=== PATIENT | female | born 1995 | race African-American/Black ===

== ENCOUNTER 2018-10-10 17:53 | Emergency (ER) | payer MEDICAID ==
[2018-10-10 18:09] VITALS: BP 124/74
--- NOTE | 2018-10-11 09:47 | ER Document Report ---
ED Medical Screen (RME) - General Chief Complaint: Abdominal Pain Stated Complaint: FLU LIKE SYMPTOMS Mode of Arrival: Medic Information source: Patient, Emergency Med Personnel Notes: 23-year-old female at reportedly 32 weeks gestation presents with complaint of lower abdominal pain. Patient states that she has not had an ultrasound but has been seeing health department. She has not yet been seen by INSTRUMENTATION TECH. Patient denies vaginal bleeding. Has been experiencing cramping and diarrhea. I have greeted and performed a rapid initial assessment of this patient. A comprehensive ED assessment and evaluation of the patient, analysis of test results and completion of medical decision making process we will be contacted by additional ED providers. Exam significant for a gravid abdomen. Bedside ultrasound was performed and showed a breech presentation of a fetus that looked well into the second trimester. Patient stable for transfer to labor and delivery. TRAVEL OUTSIDE OF THE [place] IN LAST 30 DAYS: No - Related Data Allergies/Adverse Reactions: sulfamethoxazole [From Septra] Allergy (Verified 10/10/18 18:42) trimethoprim [From Julra] Allergy (Verified 10/10/18 18:42) Past Medical History Renal/ Medical History: Denies: Hx Peritoneal Dialysis Past Surgical History: Reports: Hx Section - C SEC X 1 Physical Exam - Vital signs Vitals: Temp Pulse Resp BP Pulse Ox 98.0 F 78 24 H 124/74 100 10/10/18 18:00 10/10/18 18:00 10/10/18 18:00 10/10/18 18:00 10/10/18 18:00 Course - Vital Signs Vital signs: Temp Pulse Resp BP Pulse Ox 98.0 F 78 24 H 124/74 100 10/10/18 18:00 10/10/18 18:00 10/10/18 18:00 10/10/18 18:00 10/10/18 18:00 Doctor's Discharge - Discharge Disposition: LABOR CHECK
== END 2018-10-10 18:11 | disposition admitted as inpatient to this hospital (09) ==
LOC: ER 17:53
DX: O60.03 Preterm labor without delivery, third trimester (principal); O26.893 Other specified pregnancy related conditions, third trimester; R19.7 Diarrhea, unspecified; Z3A.32 32 weeks gestation of pregnancy; Z88.1 Allergy status to other antibiotic agents
CPT/HCPCS: 99283

== ENCOUNTER 2018-10-10 18:13 | Outpatient (CLI) | payer MEDICAID ==
[2018-10-10 19:05] LABS: APPEARANCE,URINE CLEAR; BILIRUBIN,URINE NEGATIVE (NEGATIVE); COLOR,URINE YELLOW; GLUCOSE, URINE NEGATIVE (NEGATIVE); KETONES,URINE NEGATIVE (NEGATIVE); LEUKOCYTE ESTERASE,URINE NEGATIVE (NEGATIVE); NITRITE,URINE NEGATIVE (NEGATIVE); PROTEIN,URINE NEGATIVE (NEGATIVE); URINE SPECIFIC GRAVITY 1.011; UROBILINOGEN,URINE NEGATIVE mg/dL (<2.0)
[2018-10-10 19:23] LABS: URINE AMPHETAMINES SCREEN NEGATIVE; URINE BARBITURATES SCREEN NEGATIVE; URINE BENZODIAZEPINES SCREEN NEGATIVE; URINE COCAINE SCREEN NEGATIVE; URINE MARIJUANA (THC) SCREEN NEGATIVE; URINE METHADONE SCREEN NEGATIVE; URINE PHENCYCLIDINE SCREEN NEGATIVE
--- NOTE | 2018-10-10 20:28 | L&D Progress Notes ---
PROGRESS NOTES Datetime Report Generated by CPN: 10/10/2018 20:28 PROGRESS NOTE Impression Other: pelvic pressure anback pain Procedures- Other: monitor Plan Other: monitor Vital Signs : Reviewed; Within Normal Limits Comment: Pt arrived via ambulance c/ "abdominal pain. Assessment of the pt is that she is c/o of low pelvic pressure and low back pain. Her cervix is closed and thick. The pain is intermittent. NST not reactive, but expected at 31 weeks. Would like to see better variability. Will give the pt some juice or a popsicle and then she can have some Nubain. VAGINAL EXAM Dilatation: closed Effacement: thick Station: high Contractions: none LAST VAGINAL EXAM-NURSING Dilitation: 0.0 Effacement: 0 Station: thick Contractions: abd palpates soft FETUS A FHR - Baseline: 130s Monitoring: External US Variability: Minimal - Undetectable to <=5bpm Accelerations: 10X10 Decelerations: None FHR Category: Category I FHR Comments: appropriate for EGA; pt has not eaten for several hours : 31.3 SIGNATURE SIGNATURE: [id number] Signature: with User ID: [email or web address]
[2018-10-10] MEDS ORDERED: NALBUPHINE HCL INJ 10 MG/1 ML AMPULE IM ONE (20:30)
[2018-10-10] MEDS ORDERED: NALBUPHINE HCL INJ 10 MG/1 ML AMPULE ONE (21:14)
== END 2018-10-10 21:42 | disposition home or self-care (01) ==
LOC: LC 18:13
PROVIDERS: ATTEND Obstetrics & Gynecology
PROC: 4A1HXCZ Monitoring of Products of Conception, Cardiac Rate, External Approach (ICD-10-PCS; principal; 2018-10-10)
DX: O47.03 False labor before 37 completed weeks of gestation, third trimester (principal); Z3A.32 32 weeks gestation of pregnancy
CPT/HCPCS: 81001; 80307; 59899; J2300

== ENCOUNTER 2018-11-21 01:01 | Outpatient (CLI) | payer MEDICAID ==
[2018-11-21 02:28] LABS: APPEARANCE,URINE CLEAR; COLOR,URINE YELLOW; GLUCOSE, URINE NEGATIVE (NEGATIVE)
[2018-11-21 02:29] LABS: BILIRUBIN,URINE NEGATIVE (NEGATIVE); KETONES,URINE NEGATIVE (NEGATIVE); LEUKOCYTE ESTERASE,URINE NEGATIVE (NEGATIVE); NITRITE,URINE NEGATIVE (NEGATIVE); PROTEIN,URINE 30 mg/dL (NEGATIVE); UROBILINOGEN,URINE NEGATIVE mg/dL (<2.0)
[2018-11-21 02:45] LABS: URINE AMPHETAMINES SCREEN NEGATIVE; URINE BARBITURATES SCREEN NEGATIVE; URINE BENZODIAZEPINES SCREEN NEGATIVE; URINE COCAINE SCREEN NEGATIVE; URINE MARIJUANA (THC) SCREEN NEGATIVE; URINE METHADONE SCREEN NEGATIVE; URINE PHENCYCLIDINE SCREEN NEGATIVE
[2018-11-21 03:17] LABS: ABSOLUTE BASOPHILS # (AUTO) 0.1 10^3/uL (0.0-0.2); ABSOLUTE EOSINOPHILS # (AUTO) 0.9 10^3/uL (0.0-0.6); ABSOLUTE LYMPHOCYTES (AUTO) 3.1 10^3/uL (0.5-4.7); ABSOLUTE MONOCYTES (AUTO) 0.8 10^3/uL (0.1-1.4); ABSOLUTE NEUT (AUTO) 8.9 10^3/uL (1.7-8.2); EOSINOPHILS % (AUTO) 6.8 % (0-6); HEMATOCRIT 38.5 % (36.0-47.0); HEMOGLOBIN 12.7 g/dL (12.0-15.5); LYMPHOCYTES % (AUTO) 22.4 % (13-45); MEAN CORPUSCULAR HEMOGLOBIN 27.1 pg (27.0-33.4); MEAN CORPUSCULAR HGB CONC 32.9 g/dL (32.0-36.0); MEAN CORPUSCULAR VOLUME 83 fl (80-97); MONOCYTES % (AUTO) 5.5 % (3-13); PLATELET COUNT 352 10^3/uL (150-450); RED BLOOD COUNT 4.67 10^6/uL (3.72-5.28); RED CELL DISTRIBUTION WIDTH 15.9 % (11.5-14.0); SEGMENTED NEUTROPHILS % (AUTO) 64.3 % (42-78); TOTAL CELLS COUNTED % (AUTO) 100 %; WHITE BLOOD COUNT 13.8 10^3/uL (4.0-10.5)
[2018-11-21] MEDS ORDERED: HYDROXYZINE PAMOATE 50 MG CAPSULE PO ONE (03:47)
[2018-11-21] MEDS ORDERED: HYDROXYZINE PAMOATE 50 MG CAPSULE ONE (03:53)
[2018-11-21 03:57] LABS: CHLAM PCR NOT DETECTED (NOT DETECT); GON PCR NOT DETECTED (NOT DETECT)
--- NOTE | 2018-11-21 05:37 | Non Stress Test Report ---
Non Stress Test Datetime Report Generated by CPN: 11/21/2018 05:37 DEMOGRAPHIC EGA NST: 37.3 INDICATION Indication for Study: Ordered by Provider; Other Indication for Study (NST) Other: Labor check VITAL SIGNS Temperature - NST: 98.0 Pulse - NST: 68 RESP - NST: 14 NBPSYS NST: 138 NBPDIA NST: 93 URINE RESULTS Urine Protein, NST: Positive Urine Ketones - NST: Negative Urine Glucose - NST: Negative Urine Blood - NST: Negative MONITORING Monitor Explained: Monitor Explained; Test Explained; Patient Verbalized Understanding Time on Monitor: 11/21/2018 01:25 Time off Monitor: 11/21/2018 03:36 NST Duration: 131 NST INTERVENTIONS NST Interventions: PO Hydration; Other NST Interventions Other: Popsicles Physician Notified NST: Dr. Gagandeep BABY A: [id number] BABY A Movement : Present Contraction Frequency : None noted FHR Baseline : 125 Accelerations : 15X15 Decelerations : None Variability : Moderate 6-25bpm NST Review: Meets Criteria for Reactive NST NST Review and Verified By : Darcie Castellanos RN NST Results: Reactive NST REPORT Report Trigger: Send Report
[2018-11-22 05:54] LABS: RUBELLA INTERPRETATION POSITIVE
[2018-11-22 06:39] LABS: HEPATITIS C VIRUS AB 0.1 s/co ratio (0.0-0.9)
[2018-11-22 07:11] LABS: HEPATITS B SURFACE ANTIGEN Negative (Negative)
== END 2018-11-21 05:57 | disposition home or self-care (01) ==
LOC: LC 01:01
PROVIDERS: ATTEND Obstetrics & Gynecology
PROC: 4A1HXCZ Monitoring of Products of Conception, Cardiac Rate, External Approach (ICD-10-PCS; principal; 2018-11-21)
DX: O47.1 False labor at or after 37 completed weeks of gestation (principal); Z3A.37 37 weeks gestation of pregnancy
CPT/HCPCS: 59025; 94760; 86900; 86901; 36415; 86850; 85025; 81005; 87077; 86762; 86592; 87081; 87340; 86701; 80307; 87491; 87591; 86803; 86804; 84112; J3490

== ENCOUNTER 2018-12-01 07:07 | Inpatient (IN) | payer MEDICAID ==
[2018-12-01 08:28] LABS: APPEARANCE,URINE SLIGHTLY-CLOUDY; BILIRUBIN,URINE NEGATIVE (NEGATIVE); COLOR,URINE YELLOW; GLUCOSE, URINE NEGATIVE (NEGATIVE); KETONES,URINE NEGATIVE (NEGATIVE); LEUKOCYTE ESTERASE,URINE TRACE (NEGATIVE); NITRITE,URINE NEGATIVE (NEGATIVE); PROTEIN,URINE 100 mg/dL (NEGATIVE); URINE SPECIFIC GRAVITY 1.018; UROBILINOGEN,URINE NEGATIVE mg/dL (<2.0)
[2018-12-01] MEDS ORDERED: CEFAZOLIN 1 GM/D5W RTU 2 GM/100 ML RTUPB IV ONE (08:38)
[2018-12-01] MEDS ORDERED: CITRIC ACID/SODIUM CITRATE ORAL SOLN 15 ML UDCUP ONE (08:38)
[2018-12-01 08:49] LABS: URINE AMPHETAMINES SCREEN NEGATIVE; URINE BARBITURATES SCREEN NEGATIVE; URINE BENZODIAZEPINES SCREEN NEGATIVE; URINE COCAINE SCREEN NEGATIVE; URINE MARIJUANA (THC) SCREEN NEGATIVE; URINE METHADONE SCREEN NEGATIVE; URINE PHENCYCLIDINE SCREEN NEGATIVE
[2018-12-01] MEDS ORDERED: OXYTOCIN 10 UNIT/ML VIAL ONE (09:05)
[2018-12-01] MEDS ORDERED: PROPOFOL INJ 200 MG/20 ML VIAL IV ONE (09:05)
[2018-12-01] MEDS ORDERED: FENTANYL CITRATE INJ/PF 100 MCG/2 ML AMPUL ONE (09:06)
[2018-12-01] MEDS ORDERED: MIDAZOLAM 2 MG/2 ML INJ ONE (09:06)
[2018-12-01] MEDS ORDERED: OXYTOCIN/NORMAL SALINE 20 UNIT/1,000 ML RTUINJ ONE (09:06)
[2018-12-01] MEDS ORDERED: EPHEDRINE SULFATE INJ 50 MG/1 ML AMPULE ONE (09:06)
[2018-12-01] MEDS ORDERED: ONDANSETRON HCL INJ/PF 4 MG/2 ML SDV ONE (09:06)
[2018-12-01] MEDS ORDERED: CEFAZOLIN SODIUM 2 GM in DEXTROSE 5%-WATER 50 ML IV PRN (09:13)
--- NOTE | 2018-12-01 09:15 | Admission Physical ---
Datetime Report Generated by CPN: 12/01/2018 09:15 CURRENT ADMISSION Chief Complaint: Uterine Contractions Indication for Induction: Not Applicable Admit Impression : Term, Intrauterine ; Intact Membranes; Repeat Section Admit Impression- Other: very poor care. indicates that she had "a blood clot in her lungs" after her last c/section. denies taking anticoagulants this . Admit Plan: Admit to Unit; Initiate Section Protocol ALLERGIES Medication Allergies: Yes Medication Allergies: sulfamethoxazole (11/21/2018); trimethoprim (11/21/2018) Latex: No Latex Allergies Food Allergies: NKA Environmental Allergies: NKA OBSTETRICAL HISTORY EDC: 12/09/2018 00:00 : 2 Para: 2 Term: 0 : 2 SAB: 0 IAB: 0 Ectopic: 0 Livin Cesareans: 1 VBACs: 0 Multiple Births: 1 Gestational Diabetes: No Rh Sensitization: No Incompetent Cervix: No DARYL: No Infertility: No ART Treatment: No Uterine Anomaly: No IUGR: No Hx Previous C/S: Yes Macrosomia: No Hx Loss/Stillborn: No PIH: No Hx : No Placenta Previa/Abruption: No Depression/PP Depression: No PTL/PROM: No Post Hemorrhage: No Current Procedures: Ultrasound SEE RECORDS Alcohol: No Marijuana : No Cocaine: No Other Illicit Drugs: No Cigarettes: Never Smoker. 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 Surgery: No Heart Disease: No Hosp/Surgery: Yes Autoimmune Disorder: No Anesthetic Complications: Yes Kidney Disease: No Abnormal Pap Smear: No Neuro/Epilepsy: No Psychiatric Disorders: No Other Medical Diseases: No Hepatitis/Liver Disease: No Significant Family History: No Varicosities/Phlebitis: Yes Thyroid Dysfunction: No INFECTIOUS HISTORY Gonorrhea: No Genital Herpes: No Chlamydia: No Tuberculosis: No Syphilis: No Hepatitis: No Rash or Viral Illness: No HPV: No PHYSICAL EXAM General: Normal HEENT: Normal Neurologic: Normal Thyroid: Normal Heart: Normal Lungs: Normal Breast: Normal Back: Normal Abdomen: Normal Genitourinary Exam: Normal Extremities: Normal DTRs: Normal Pelvic Type: Adequate Vital Signs: Reviewed Details Vital Signs: elevated bps VAGINAL EXAM Dilatation: 3 Effacement: 50 Station: -3 Contraction Comments: none MEMBRANES Pooling: Positive Membranes: Ruptured Amniotic Fluid Color: Clear FETUS A EGA: 38.6 Monitoring: External US FHR- Baseline: 120 Variability: Moderate 6-25bpm Accelerations: 10X10 Decelerations: Late FHR Category: Category II Estimated Weight (gm): 3500 Presentation: Breech Admit Comment: proceed with urgent repeat c/section. anticoagulation/scds initated. will continue anticoagulation after c/section x 6 wks. PLANS FOR LABOR AND DELIVERY Labor and Delivery: None Pain Management: Epidural Feeding Preference: Both Benefit of Breast Feed Discussed: Yes Circumcision: Yes INFORMED CONSENT Signature: with User ID: [email or web address]
[2018-12-01 09:21] LABS: ABSOLUTE EOSINOPHILS # (AUTO) 0.3 10^3/uL (0.0-0.6); ABSOLUTE LYMPHOCYTES (AUTO) 1.8 10^3/uL (0.5-4.7); ABSOLUTE MONOCYTES (AUTO) 0.5 10^3/uL (0.1-1.4); ABSOLUTE NEUT (AUTO) 8.5 10^3/uL (1.7-8.2); BASOPHILS % (AUTO) 0.4 % (0-2); EOSINOPHILS % (AUTO) 3.1 % (0-6); HEMATOCRIT 38.7 % (36.0-47.0); HEMOGLOBIN 12.6 g/dL (12.0-15.5); MEAN CORPUSCULAR HEMOGLOBIN 26.6 pg (27.0-33.4); MEAN CORPUSCULAR HGB CONC 32.6 g/dL (32.0-36.0); MEAN CORPUSCULAR VOLUME 82 fl (80-97); MONOCYTES % (AUTO) 4.2 % (3-13); PLATELET COUNT 318 10^3/uL (150-450); RED BLOOD COUNT 4.75 10^6/uL (3.72-5.28); RED CELL DISTRIBUTION WIDTH 16.3 % (11.5-14.0); SEGMENTED NEUTROPHILS % (AUTO) 76.3 % (42-78); TOTAL CELLS COUNTED % (AUTO) 100 %; WHITE BLOOD COUNT 11.1 10^3/uL (4.0-10.5)
[2018-12-01 09:23] LABS: INTERNATIONAL RATION (INR) 0.89; PARTIAL THROMBOPLASTIN TIME 24.6 SEC (23.5-35.8); PROTHROMBIN TIME 12.5 SEC (11.4-15.4)
[2018-12-01] MEDS ORDERED: BUPIVACAINE HCL/DEX-WATER/PF 15 MG/2 ML AMPULE ONE (09:24)
[2018-12-01] MEDS ORDERED: NALBUPHINE HCL INJ 10 MG/1 ML AMPULE ONE (10:28)
[2018-12-01] MEDS ORDERED: OXYCODONE-ACETAMINOPHEN 5-325 MG TABLET PO PRN (10:37)
[2018-12-01] MEDS ORDERED: ACETAMINOPHEN 1,000 MG/100 ML RTUPB IV PRN (10:37)
[2018-12-01] MEDS ORDERED: MEASLES,MUMPS&RUBELLA VACC/PF 0.5 ML VIAL SUBCUT PRN (10:37)
[2018-12-01] MEDS ORDERED: PROMETHAZINE HCL INJ 25 MG/1 ML VIAL IV PRN (10:37)
[2018-12-01] MEDS ORDERED: DIPH/PERTUSS(ACELL)/TETANUS VAC/PF 0.5 ML SYR (>=10YO) IM PRN (10:37)
[2018-12-01] MEDS ORDERED: OXYTOCIN/NORMAL SALINE 20 UNIT/1,000 ML RTUINJ IV PRN (10:37)
[2018-12-01] MEDS ORDERED: SIMETHICONE 80 MG TAB.CHEW PO PRN (10:37)
[2018-12-01] MEDS ORDERED: ACETAMINOPHEN 325 MG TABLET PO PRN (10:37)
[2018-12-01] MEDS ORDERED: KETOROLAC TROMETHAMINE INJ/PF 30 MG/1 ML SDV ONE (10:50)
[2018-12-01] MEDS ORDERED: ACETAMINOPHEN 1,000 MG/100 ML RTUPB IV ONE (10:50)
[2018-12-01] MEDS ORDERED: CEFAZOLIN 1 GM/D5W RTU 1 GM/50 ML RTUPB IV ONE ×3 (11:08→11:11)
[2018-12-01] MEDS ORDERED: MORPHINE SULFATE 10 MG/ML INJ ONE (12:49)
[2018-12-01] MEDS: MORPHINE SULFATE 10 MG/ML INJ IV PRN ×2 (12:50→16:34)
--- NOTE | 2018-12-01 13:58 | Delivery Summary ---
Del Sum A-C Datetime Report Generated by CPN: 12/01/2018 13:57 DELIVERY PERSONNEL DELIVERY PERSONNEL: [id number] Delivery Doctor:: Klarissa Donis MD Anesthesiologist:: Ana Reyez MD ELEMENTARY TEACHER:: Pramod Mason ELEMENTARY TEACHER Party Demonstrator:: Stacey Dunaway, RNC Emission Technician:: Maverick Rosario MD Nursery Nurse:: Hyacinth Neri RN Dental Associate/WASHHOUSE WORKER: [facility] Dental Associate/WASHHOUSE WORKER: Ann Montenegro, BUILDING ARCHITECT MATERNAL INFORMATION Delivery Anesthesia: Spinal Medications After Delivery: Pitocin Bolus-Please Comment Maternal Complications: None; Other Complication Details: limited care /hx of pe and no treatment this /no previous records available LABOR SUMMARY EDC: 12/09/2018 00:00 No. Babies in Womb: 1 Attempted: No Labor Anesthesia: None LABOR INFORMATION Reason for Induction: Not Applicable Onset of Labor: 11/30/2018 19:00 Oxytocin: N/A Group B Beta Strep: positive Antibiotics # of Doses: 0 Antibiotics Time of Last Dose: 0 Name of Antibiotic Given: ancef 2 grams preop Steroids Given: None Reason Steroids Not Administered: Not Applicable MEMBRANES Membranes Rupture Method: Spontaneous Rupture of Membranes: 11/30/2018 23:00 Length of Rupture (hr): 10.77 Amniotic Fluid Color: Clear Amniotic Fluid Amount: Scant Amniotic Fluid Odor: Normal STAGES OF LABOR Stage 3 hr: 0 Stage 3 min: 1 Total Time in Labor hr: 14 Total Time in Labor min: 47 VAGINAL DELIVERY Episiotomy: None Laceration #1: None Laceration Extension #1: N/A Laceration Repair: Not Applicable Sponge Count Correct: N/A Sharps Count Correct: N/A CSECTION DELIVERY Primary Indication: Nonreassuring Status Secondary Indication: Repeat CSection Urgency: Non-Scheduled CSection Incidence: Repeat Labor: Labor Elective: Nonelective CSection Incision: Lower Uterine Transverse BABY A INFORMATION Infant Delivery Date/Time: 12/01/2018 09:46 Method of Delivery: Born in Route : No : N/A Forceps: N/A Vacuum Extraction: N/A Shoulder Dystocia : No PRESENTATION/POSITION BABY A Presentation: Cephalic Cephalic Presentation: Vertex Vertex Position: vertex Breech Presentation: N/A PLACENTA INFORMATION BABY A Placenta Delivery Time : 12/01/2018 09:47 Placenta Method of Delivery: Manual Removal Placenta Status: Delivered SCORES BABY A Heart Rate 1 min: >100 bpm Resp Effort 1 min: Slow, Irregular Reflex Irritability 1 min: No Response Muscle Tone 1 min: Flaccid Color 1 min: Blue/Pale Resuscitation Effort 1 min: Tactile Stimulation; PPV/NCPAP SCORE 1 MIN: 3 Heart Rate 5 min: >100 bpm Resp Effort 5 min: Good Cry Reflex Irritability 5 min: Cough or Sneeze or Pulls Away Muscle Tone 5 min: Active Motion Color 5 min: Body [place], Extremities Blue SCORE 5 MIN: 9 INFANT INFORMATION BABY A Gestational Age at Delivery: 38.6 Gestational Status: Early Term- 37- 38.6 Weeks Outcome : Liveborn Condition : Stable Infant Sex: Male IDENTIFICATION BABY A Infant Verification Date/Time: 12/01/2018 09:50 ID Band Number: [id number] Mother's Name Verified: Yes RN Verifying : Demetrice Tamayoterri RN/D Emelyn RN Additional Verifying Personnel: [facility] RN WEIGHT/LENGTH BABY A Infant Birthweight (gm): 2060 Infant Weight (lb): 4 Weight (oz): 9 Length (in): 19.00 Infant Length (cm): 48.26 CORD INFORMATION BABY A No. Cord Vessels: 3 Nuchal Cord : N/A Cord Blood Taken: Yes-For Storage (Mom's Blood type +) Infant Suction: Mouth; Nose; Pharynx ASSESSMENT BABY A Skin to Skin: Yes Skin to Skin Time (min): 60 BABY B INFORMATION : N/A
[2018-12-01] MEDS: KETOROLAC TROMETHAMINE INJ/PF 30 MG/1 ML SDV IV SCH ×2 (15:29→21:41)
[2018-12-01] MEDS: DOCUSATE SODIUM 100 MG CAPSULE PO SCH (19:02)
[2018-12-01] MEDS: OXYCODONE-ACETAMINOPHEN 5-325 MG TABLET PO PRN (21:47)
[2018-12-02] MEDS ORDERED: ENOXAPARIN SODIUM INJ 40 MG/0.4 ML DISP.SYRIN SUBCUT ONE (00:10)
[2018-12-02] MEDS: OXYCODONE-ACETAMINOPHEN 5-325 MG TABLET PO PRN ×3 (03:08→21:34)
--- NOTE | 2018-12-02 05:27 | OPERATIVE REPORT E ---
Operative Report NAME: BELKIS JAMES : 1995 AGE: 23Y DATE OF SURGERY: 12/01/2018 ROOM: 227 PREOPERATIVE DIAGNOSES: 1. IUP AT 38 WEEKS AND 2 DAYS. 2. PREVIOUS . 3. NONREASSURING HEART TONES. 4. LABOR. POSTOPERATIVE DIAGNOSES: 1. IUP AT 38 WEEKS AND 2 DAYS. 2. PREVIOUS . 3. NONREASSURING HEART TONES. 4. LABOR. OPERATION: Low transverse hysterotomy section. SURGEON: LORY MATT M.D. ANESTHESIA: Dr. Reyez with a spinal. FINDINGS: Male infant in cephalic presentation with Apgars of 8 and 9, weight 4 pounds 13 ounces. ESTIMATED BLOOD LOSS: 650 mL COMPLICATIONS: None. PATHOLOGY: Placenta. PROCEDURE IN DETAIL: The patient was taken to the operating room, prepared and draped in a normal sterile fashion in the supine position with a leftward tilt. A transverse skin incision was made with a scalpel and carried through to the underlying layer of fascia with the same scalpel. The fascia was excised in the midline and extended laterally with Ascencion, and the fascia was then dissected from the rectus muscle sharply with Ascencion and the rectus muscle was divided sharply with bandage scissors. The peritoneal cavity was entered bluntly. The bladder blade was inserted and the bladder flap was created using Metzenbaums. The bladder blade was reinserted and the hysterotomy was nicked with scalpel and extended laterally with surgeon finger fracture. The was then delivered atraumatically. The nose and mouth were suctioned with a suction bulb and the cord was clamped and cut. The infant was handed off to awaiting pediatricians. The placenta was removed manually. The cord blood was collected. The placenta was removed manually. The uterus was exteriorized and cleared of clot and debris. The hysterotomy was closed with 0 Monocryl in a running, locked fashion. A second layer of the same suture was used to imbricate to ensure hemostasis. The uterus was returned to the abdomen. The peritoneal cavity was cleared of clots and debris. The rectus muscle and peritoneum were reapproximated with a mattress stitch of 2-0 chromic. The fascia was closed with 0 Vicryl. The subcutaneous layer was closed with plain catgut and the skin was closed with 4-0 Vicryl. The patient tolerated the procedure well. Sponge, lap, and needle counts were correct x2 and the patient was taken to recovery in stable condition. DICTATING PHYSICIAN: LORY MATT M.D. [id number] PHY#: [id number] ID: [id number] JOB#: [id number] ACCT: [id number] cc:LORY MATT M.D. >
[2018-12-02] MEDS: KETOROLAC TROMETHAMINE INJ/PF 30 MG/1 ML SDV IV SCH (05:53)
[2018-12-02 06:44] LABS: HEMATOCRIT 30.8 % (36.0-47.0); MEAN CORPUSCULAR HEMOGLOBIN 27.3 pg (27.0-33.4); MEAN CORPUSCULAR HGB CONC 33.3 g/dL (32.0-36.0); MEAN CORPUSCULAR VOLUME 82 fl (80-97); PLATELET COUNT 271 10^3/uL (150-450); RED BLOOD COUNT 3.74 10^6/uL (3.72-5.28); RED CELL DISTRIBUTION WIDTH 16.2 % (11.5-14.0); WHITE BLOOD COUNT 13.1 10^3/uL (4.0-10.5)
[2018-12-02 06:46] LABS: HEMOGLOBIN 10.2 g/dL (12.0-15.5)
[2018-12-02] MEDS ORDERED: NIFEDIPINE 30 MG TAB.ER.24 PO ONE (07:00)
--- NOTE | 2018-12-02 09:21 | PDOC PROGRESS REPORT ---
Subjective Progress Note for:: 12/02/18 Subjective:: Patient states that she feels good; pain controlled; decreasing lochia. She denies chest pain, shortness of breath, fever/chills and nausea/vomiting. Patient is voiding without difficulty. Patient has not ambulated much yet. Reason For Visit: , SECTION Physical Exam - Physical Exam Vital Signs: Temp Pulse Resp BP Pulse Ox 98.4 F 70 18 140/86 H 99 12/02/18 07:46 12/02/18 07:46 12/02/18 07:46 12/02/18 07:46 12/02/18 07:46 Intake & Output 12/01/18 12/02/18 12/03/18 06:59 06:59 06:59 Output Total 1200 Balance -1200 Weight 100.7 kg General appearance: PRESENT: no acute distress Respiratory exam: PRESENT: clear to auscultation felix GI/Abdominal exam: PRESENT: normal bowel sounds, soft - Incision: Small amount of bright red bleeding midline; no erythema Extremities exam: ABSENT: calf tenderness, clubbing - PAS in place, full ROM, joint swelling, pedal edema, tenderness, +1 edema, +2 edema, other Result Laboratory Results: 12/02/18 06:36 12/01/18 12/01/18 12/02/18 08:47 08:47 06:36 WBC 11.1 H 13.1 H RBC 4.75 3.74 Hgb 12.6 10.2 L D Hct 38.7 30.8 L MCV 82 82 MCH 26.6 L 27.3 MCHC 32.6 33.3 RDW 16.3 H 16.2 H Plt Count 318 271 Seg Neutrophils % 76.3 Lymphocytes % 16.0 Monocytes % 4.2 Eosinophils % 3.1 Basophils % 0.4 Absolute Neutrophils 8.5 H Absolute Lymphocytes 1.8 Absolute Monocytes 0.5 Absolute Eosinophils 0.3 Absolute Basophils 0.0 Blood Type B POSITIVE Antibody Screen NEGATIVE Assessment & Plan - Diagnosis (1) Previous section complicating Is this a current diagnosis for this admission?: Yes (2) No care in current Qualifiers: Trimester: third trimester Qualified Code(s): O09.33 - Supervision of with insufficient care, third trimester Is this a current diagnosis for this admission?: Yes (4) delivery delivered Is this a current diagnosis for this admission?: Yes (5) History of pulmonary embolus (PE) Is this a current diagnosis for this admission?: Yes - Time Time Spent with patient: Less than 15 minutes Anticipated discharge: Home Within: within 48 hours - Plan Summary Plan Summary: Continue postoperative, care
[2018-12-02] MEDS: IBUPROFEN 800 MG TABLET PO SCH ×3 (11:32→23:19)
[2018-12-02] MEDS: DOCUSATE SODIUM 100 MG CAPSULE PO SCH ×2 (11:32→21:42)
[2018-12-02] MEDS: PRENATAL VITAMIN W DHA CAPSULE PO SCH (11:32)
[2018-12-02] MEDS: ENOXAPARIN SODIUM INJ 40 MG/0.4 ML DISP.SYRIN SUBCUT SCH ×2 (11:33→21:35)
[2018-12-03] MEDS: OXYCODONE-ACETAMINOPHEN 5-325 MG TABLET PO PRN ×2 (04:15→08:13)
[2018-12-03] MEDS: IBUPROFEN 800 MG TABLET PO SCH ×2 (06:12→12:58)
[2018-12-03] MEDS ORDERED: NIFEDIPINE 30 MG TAB.ER.24 PO SCH (10:00)
--- NOTE | 2018-12-03 10:29 | PDOC DISCHARGE SUMMARY ---
Final Diagnosis Discharge Date: 12/03/18 - Final Diagnosis (1) Acute blood loss anemia Is this a current diagnosis for this admission?: Yes (2) Elevated blood pressure reading with diagnosis of hypertension Is this a current diagnosis for this admission?: Yes (3) No care in current Is this a current diagnosis for this admission?: Yes (4) Previous section complicating Is this a current diagnosis for this admission?: Yes (5) delivery delivered Is this a current diagnosis for this admission?: Yes (6) History of pulmonary embolus (PE) Is this a current diagnosis for this admission?: Yes Discharge Data - Discharge Medication Prescriptions: Oxycodone HCl/Acetaminophen [Percocet 5-325 mg Tablet] 2 tab PO Q4HP PRN #20 tablet PRN Reason: For Pain Scale 3-5 Ibuprofen [Motrin 800 mg Tablet] 800 mg PO Q8HP PRN #30 tablet PRN Reason: Abdominal Cramping Docusate Sodium [Colace 100 mg Capsule] 100 mg PO BID #60 capsule Enoxaparin Sodium [Lovenox Inj 40 mg/0.4 ml Disp.syrin] 40 mg SUBCUT DAILY #30 disp.syrin Ferrous Sulfate [Feosol 325 mg Tablet] 325 mg PO BID #60 tablet Nifedipine [Procardia XL 30 mg Tablet] 30 mg PO DAILY #30 tab.er.24 Home Medications: 114/Iron A-G/Folate 1 [Prenate Elite Tablet] 1 tab PO DAILY 10/10/18 Docusate Sodium [Colace 100 mg Capsule] 100 mg PO BID #60 capsule 12/03/18 Enoxaparin Sodium [Lovenox Inj 40 mg/0.4 ml Disp.syrin] 40 mg SUBCUT DAILY #30 disp.syrin 12/03/18 Ferrous Sulfate [Feosol 325 mg Tablet] 325 mg PO BID #60 tablet 12/03/18 Ibuprofen [Motrin 800 mg Tablet] 800 mg PO Q8HP PRN #30 tablet 12/03/18 Nifedipine [Procardia XL 30 mg Tablet] 30 mg PO DAILY #30 tab.er.24 12/03/18 Oxycodone HCl/Acetaminophen [Percocet 5-325 mg Tablet] 2 tab PO Q4HP PRN #20 tablet 12/03/18 Reason(s) for Admission: Onset of Labor, Ceasarean Section-Repeat, Status Procedures: Ultrasound Intrapartum Procedure(s): : Low Cervical, Transverse - Diagnosis Test Laboratory: Temp Pulse Resp BP Pulse Ox 98.6 F 79 18 145/94 H 98 12/03/18 07:50 12/03/18 07:50 12/03/18 07:50 12/03/18 07:50 12/03/18 07:50 12/01/18 12/01/18 12/02/18 07:45 08:47 06:36 RBC 4.75 3.74 Hgb 12.6 10.2 L D Hct 38.7 30.8 L Urine Opiates Screen NEGATIVE - Discharge information/Instructions Discharge Activity: Activity As Tolerated, Balance Activity w/Rest, No Driving, No Lifting Over 10 Pounds, Pelvic Rest, No tub bath, Walk Frequently Discharge Diet: As Tolerated, Regular Disposition: HOME, SELF-CARE Follow up with: [facility] in: 1, Weeks - incision and bp check
[2018-12-03] MEDS: PRENATAL VITAMIN W DHA CAPSULE PO SCH (10:37)
[2018-12-03] MEDS: DOCUSATE SODIUM 100 MG CAPSULE PO SCH (10:37)
[2018-12-03] MEDS: ENOXAPARIN SODIUM INJ 40 MG/0.4 ML DISP.SYRIN SUBCUT SCH (10:38)
[2018-12-03 11:07] VITALS: BP 159/97
[2018-12-03] MEDS ORDERED: MEDROXYPROGESTERONE ACET INJ 150 MG/1 ML VIAL IM ONE ×2 (11:30→17:00)
[2018-12-03] MEDS ORDERED: DIPH/PERTUSS(ACELL)/TETANUS VAC/PF 0.5 ML SYR (>=10YO) IM PRN (14:30)
[2018-12-03] MEDS ORDERED: MEASLES,MUMPS&RUBELLA VACC/PF 0.5 ML VIAL SUBCUT PRN (14:30)
[2018-12-03] MEDS ORDERED: PROMETHAZINE HCL INJ 25 MG/1 ML VIAL IV PRN (14:30)
== END 2018-12-03 18:05 | disposition home or self-care (01) | DRG 787 ==
LOC: LC 07:07 → LR 08:25 → 2S 13:30
PROVIDERS: ADMIT Obstetrics & Gynecology; ATTEND Obstetrics & Gynecology
PROC: 10D00Z1 Extraction of Products of Conception, Low, Open Approach (ICD-10-PCS; principal; 2018-12-01)
PROC: 4A1HXCZ Monitoring of Products of Conception, Cardiac Rate, External Approach (ICD-10-PCS; 2018-12-01)
PROC: 3E02340 Introduction of Influenza Vaccine into Muscle, Percutaneous Approach (ICD-10-PCS; 2018-12-02)
DX: O76 Abnormality in fetal heart rate and rhythm complicating labor and delivery (principal); D62 Acute posthemorrhagic anemia; O34.211 Maternal care for low transverse scar from previous cesarean delivery; O90.81 Anemia of the puerperium; O99.824 Streptococcus B carrier state complicating childbirth; Z23 Encounter for immunization; Z86.711 Personal history of pulmonary embolism; Z88.3 Allergy status to other anti-infective agents; Z88.2 Allergy status to sulfonamides; Z3A.38 38 weeks gestation of pregnancy; Z37.0 Single live birth
CPT/HCPCS: 1961; 36415; 80307; 81001; 84112; 85025; 85027; 85610; 85730; 86592; 86850; 86900; 86901; 88307; 90471; 90686; 90715; 94799; G0008; J0131; J0690; J1050; J1650; J1885; J2250; J2270; J2300; J2405; J2590; J2704; J3010; J3490

== ENCOUNTER 2020-02-19 12:25 | Emergency (ER) | payer MEDICAID ==
[2020-02-19] MEDS ORDERED: ALBUTEROL SULFATE HFA (90 MCG/PUFF) 8 GM MDI (1 MDI/ER DISP) IH PRN (12:53)
[2020-02-19] MEDS ORDERED: CETIRIZINE 10 MG TABLET PO ONE (12:53)
[2020-02-19] MEDS ORDERED: PREDNISONE 20 MG TABLET PO ONE (12:54)
[2020-02-19] MEDS ORDERED: MONTELUKAST SODIUM 10 MG TABLET PO ONE (12:55)
--- NOTE | 2020-02-19 12:55 | ER Document Report ---
ED Respiratory Problem - General Chief Complaint: Shortness Of Breath Stated Complaint: SHORTNESS OF BREATH Time Seen by Provider: 02/19/20 12:37 Primary Care Provider: ANAMARIA SMITH MD [ACTIVE STAFF] - Follow up in 3-5 days UBALDO SOLORZANO MD [ACTIVE STAFF] - Follow up in 3-5 days CIERA LOBATO MD [ACTIVE STAFF] - Follow up in 3-5 days CARROLL RIOS DO [NO LOCAL MD] - Follow up in 3-5 days Notes: Patient is a 24-year-old female who presents to the emergency department with a chief complaint of shortness of breath. Patient states that she has a history of asthma, but has not had an asthma attack in a while. Patient states that she started short of breath a few days ago, and yesterday her symptoms got even worse. She went to the respiratory clinic and was tested for coed and was referred here to the emergency department for shortness of breath. Patient does not have a rescue inhaler. She states that she may have seasonal allergies and every once a while will take Zyrtec. TRAVEL OUTSIDE OF THE [place] IN LAST 30 DAYS: No - Related Data Allergies/Adverse Reactions: sulfamethoxazole [From Julra] Allergy (Verified 02/19/20 12:45) trimethoprim [From Septra] Allergy (Verified 02/19/20 12:45) Past Medical History - General Information source: Patient - Social History Smoking Status: Never Smoker Family History: Reviewed & Not Pertinent Patient has suicidal ideation: No Patient has homicidal ideation: No Pulmonary Medical History: Reports: Hx Asthma Renal/ Medical History: Denies: Hx Peritoneal Dialysis Past Surgical History: Reports: Hx Section - C SEC X 2 Review of Systems - Review of Systems Notes: REVIEW OF SYSTEMS: CONSTITUTIONAL : Denies recent illness. Denies recent unintentional weight loss. Denies fever, chills, or sweats. EENT: Denies eye, ear, throat, or mouth pain, discharge, or symptoms. See HPI. CARDIOVASCULAR: Denies chest pain. RESPIRATORY: See HPI. GASTROINTESTINAL: Denies nausea, vomiting, and diarrhea. Denies abdominal pain. Denies constipation. GENITOURINARY: Denies difficulty urinating, burning, blood in urine, urgency or frequency. MUSCULOSKELETAL: Denies neck and back pain. Denies joint pain or swelling. SKIN: Denies rash, itchiness, or lesions HEMATOLOGIC : Denies easy bruising or bleeding. LYMPHATIC: Denies swollen, painful, enlarged glands. NEUROLOGICAL: Denies no numbness or tingling denies weakness. Denies headache. Denies altered mental status. Denies alteration in speech. PSYCHIATRIC: Denies stress, anxiety, alteration in sleep patterns, or depression. All other systems reviewed and negative. Physical Exam - Vital signs Vitals: Pulse Ox 100 02/19/20 12:57 - Notes Notes: PHYSICAL EXAMINATION: GENERAL: Appears well, healthy, well-nourished, no acute distress. HEAD: Normocephalic, atraumatic. EYES: PERRL, conjunctiva normal, all extraocular movements intact, sclera nonicteric ENT: Moist mucous membranes. Edema and erythema noted to nasal mucosa. NECK: Supple, no noticeable swelling, redness, rash. Normal range of motion. LUNGS: Diminished breath sounds throughout all lung palacios. CARDIOVASCULAR: S1-S2, regular rate, regular rhythm. Radial pulses 2+, normal. ABDOMEN: Normoactive bowel sounds. Soft, nontender, no guarding, no rebound tenderness, and no masses palpated. EXTREMITIES: Normal strength and range of motion, no pitting or edema. No cyanosis. NEUROLOGICAL: Moves all extremities upon command. Strength 5/5 in all extremities. PSYCH: Normal mood, normal affect. SKIN: Warm, dry. No rash, lesions, ulcerations noted. Normal skin turgor. Course - Re-evaluation Re-evalutation: 02/19/20 22:58 Chest x-ray is negative. No pneumonia noted. Patient tested for influenza and strep at the respiratory clinic. Theses were also negative. She is in quarantine for COVID 19 testing. Will start her on albuterol, prednisone, cetirizine, and flonase for symptoms. She does appear to have allergies. She will follow up a PCP. Stable for discharge. - Vital Signs Vital signs: Temp Pulse Resp BP Pulse Ox 100 02/19/20 12:57 Discharge - Discharge Clinical Impression: Shortness of breath, Seasonal allergies Asthma Qualifiers: Asthma severity: moderate Asthma persistence: unspecified Asthma complication type: unspecified Qualified Code(s): J45.909 - Unspecified asthma, uncomplicated Condition: Stable Disposition: HOME, SELF-CARE Additional Instructions: You are seen today in the emergency department for shortness of breath, difficulty breathing, and cough. You were tested at the [address] for COVID 19. Please self quarantine for 2 weeks. You will be called with your results. You also have seasonal allergies. Please make sure you take your prescribed allergy medication. You are also being started on prednisone, steroid to help with your breathing. Use your albuterol inhaler for any shortness of breath. Follow-up with a primary care provider. You have been referred to a few of them. Prescriptions: Montelukast Sodium [Singulair] 10 mg PO QHS #30 tablet Prednisone [Deltasone 20 mg Tablet] 3 tab PO DAILY 4 Days #12 tablet Fluticasone Propionate [Flonase Nasal [place] 50 Mcg/[place] 16 gm] 2 sprays NASL DAILY #1 inhaler Albuterol Sulfate [Proair HFA Inhalation Aerosol 8.5 gm MDI] 2 puff IH Q4H PRN #1 mdi PRN Reason: Cetirizine HCl [Zyrtec 10 mg Tablet] 10 mg PO DAILY #30 tablet Forms: Return to Work Referrals: CARROLL RIOS DO [NO LOCAL MD] - Follow up in 3-5 days ANAMARIA SMITH MD [ACTIVE STAFF] - Follow up in 3-5 days UBALDO SOLORZANO MD [ACTIVE STAFF] - Follow up in 3-5 days CIERA LOBATO MD [ACTIVE STAFF] - Follow up in 3-5 days
--- NOTE | 2020-02-19 13:56 | RADIOLOGY REPORT (SQ) ---
EXAM DESCRIPTION: CHEST SINGLE VIEW IMAGES COMPLETED DATE/TIME: 02/19/2020 12:39 pm REASON FOR STUDY: shortness of breath COMPARISON: None. EXAM PARAMETERS: NUMBER OF VIEWS: One view. TECHNIQUE: Single frontal radiographic view of the chest acquired. RADIATION DOSE: NA LIMITATIONS: None. FINDINGS: LUNGS AND PLEURA: No opacities, masses or pneumothorax. No pleural effusion. MEDIASTINUM AND HILAR STRUCTURES: No masses. Contour normal. HEART AND VASCULAR STRUCTURES: Heart normal in size. Normal vasculature. BONES: No acute findings. HARDWARE: None in the chest. OTHER: No other significant finding. IMPRESSION: NO ACUTE RADIOGRAPHIC FINDING IN THE CHEST. TECHNICAL DOCUMENTATION: JOB ID: [id number] 2010 [employer]- All Rights Reserved Reading location - IP/workstation name: [email or web address]
--- NOTE | 2020-02-20 09:26 | EKG REPORT ---
SEVERITY:- OTHERWISE NORMAL ECG - SINUS ARRHYTHMIA, RATE 47-70 : Confirmed by: Sarah Del Angel 20-Feb-2020 09:25:29
== END 2020-02-19 14:41 | disposition home or self-care (01) ==
LOC: ER 12:25
DX: J45.909 Unspecified asthma, uncomplicated (principal); R06.02 Shortness of breath; Z88.1 Allergy status to other antibiotic agents
CPT/HCPCS: 93005; 99285; 71045; 93010; J7512; J3490 ×2

== ENCOUNTER → 2020-02-19 | Outpatient (CLI) | payer MEDICAID ==
[2020-02-19 12:28] VITALS: BP 128/89
--- NOTE | 2020-02-19 12:28 | ER RDC ASSESSMENT REPORT ---
Intake - In the Last 14 days Have you traveled outside [place]?: No Have you been in close contact with someone CONFIRMED: No Worked in Healthcare?: No - Symptoms Subjective Fever([place] feverish): No Chills: Yes Muscule Aches: Yes Runny Nose: Yes Sore Throat: No Cough (New or worsening chronic cough): Yes Shortness of breath: Yes Nausea or Vomiting: Yes Headache: Yes Abdominal Pain: No Diarrhea(3 or more loose stools in last 24 hours): Yes - Do you have any of the following Chronic lung disease: Asthma or emphysema or COPD: Yes Chronic Lung Disease Comment: asthma Cystic Fibrosis: No Diabetes: No High Blood Pressure: No Cardiovascular Disease: No Chronic Kidney Disease: No Chronic Liver Disease: No Chronic blood disorder like Sickle Cell Disease: No Weak immune system due to disease or medication: No Neurologic condition that limits movement: No Developmental delay - Moderate to Severe: No Recent (within past 2 weeks) or current : No Morbid Obesity (>100 pounds over ideal weight): No - Objective Temperature: 97.4 F Pulse Rate: 84 Respiratory Rate: 34 Blood Pressure: 128/89 O2 Sat by Pulse Oximetry: 100 Objective: Given above, testing performed: flu A/B, rapid strep COVID swab collected in case above are negative If Testing Performed: Test Specimen Type Sent to [facility] lab Disposition: To ED - Sent to ED for further eval due to tachypnea and complaints of chest pain/discomfort onset last night General - General Chief Complaint: Shortness Of Breath Stated Complaint: SOB at rest and with exertion, cough Time Seen by Provider: 02/19/20 12:00 Mode of Arrival: Ambulatory Information source: Patient - [facility] Patient complains to provider of: myalgia, cough with green phlegm, SOB at rest Onset: Other - myalgia, cough, chills, CRAIN, N/D x 1 week; SOB and chest pain onset last night Onset/Duration: Gradual, Worse Quality of pain: Sharp Severity: Moderate Context: c/o chest pains Associated symptoms: Body/muscle aches, Chest pain, Chills, Productive cough, Diarrhea, Headache, Nausea, Vomiting, Rhinnorhea, Shortness of breath, Sore throat Exacerbated by: Sitting, Movement, Coughing, Deep breathing Relieved by: Remaining still Similar symptoms previously: No Recently seen / treated by doctor: No - Related Data Allergies/Adverse Reactions: sulfamethoxazole [From Septra] Allergy (Verified 11/21/18 02:41) trimethoprim [From Septra] Allergy (Verified 11/21/18 02:41) Home Medications: N/A Past Medical History - General Information source: Patient - Social History Smoking Status: Never Smoker Family History: Reviewed & Not Pertinent - Past Medical History Cardiac Medical History: Reports: None Pulmonary Medical History: Reports: Hx Asthma EENT Medical History: Reports: None Neurological Medical History: Reports: None Endocrine Medical History: Reports: None Renal/ Medical History: Reports: None. Denies: Hx Peritoneal Dialysis Malignancy Medical History: Reports: None GI Medical History: Reports: None Musculoskeletal Medical History: Reports None Skin Medical History: Reports None Psychiatric Medical History: Reports: None Traumatic Medical History: Reports: None Infectious Medical History: Reports: None Past Surgical History: Reports: None, Hx Section - C SEC X 1 Physical Exam - Vital signs Interpretation: Tachypneic - General General appearance: Anxious In distress: Moderate - Moderate distress- increased WOB, tachypneic, chest pain Notes: PHYSICAL EXAMINATION: GENERAL: Ill-appearing, moderate distress. HEAD: Atraumatic, normocephalic. EYES: sclera anicteric, conjunctiva are normal. ENT: nares patent. + Rhinorrhea. Moist mucous membranes. NECK: Normal range of motion, supple without lymphadenopathy LUNGS: Increased work of breathing. Tachypneic. LS CTAB and equal, diminished medial and bases. No wheezes rales or rhonchi. HEART: Regular rate and rhythm without murmurs ABDOMEN: Soft, nontender, normal bowel sounds, no guarding. EXTREMITIES: Normal range of motion, no pitting edema. No cyanosis. NEUROLOGICAL: Cranial nerves grossly intact. Normal speech. PSYCH: Anixous, normal affect. SKIN: Warm, Dry, normal turgor. Patient Education/Counseling Counseling/Education: Patient presents with upper respiratory symptoms worrisome for possible Covid 19. Patient presents with increased WOB, tachypnea, and c/o chest pain/pressure. Patient's other vital signs are stable. Advised to present immediately to ER for further evaluation. ER charge nurse notified. RDC Discharge - Discharge Clinical Impression: URI (upper respiratory infection) Qualifiers: URI type: unspecified URI Qualified Code(s): J06.9 - Acute upper respiratory infection, unspecified Condition: Fair Disposition: To ED
[2020-02-19 13:42] LABS: A TYPE INFLUENZA AG NEGATIVE (NEGATIVE); B INFLUENZA AG NEGATIVE (NEGATIVE)
== END ==
LOC: RDC 11:32
PROVIDERS: ATTEND Nurse Practitioner Family
DX: J06.9 Acute upper respiratory infection, unspecified (principal); Z20.828 Contact with and (suspected) exposure to other viral communicable diseases; R07.9 Chest pain, unspecified; J02.9 Acute pharyngitis, unspecified; R09.89 Other specified symptoms and signs involving the circulatory and respiratory systems; J45.909 Unspecified asthma, uncomplicated; R05 Cough; R68.83 Chills (without fever); R06.82 Tachypnea, not elsewhere classified; M79.10 Myalgia, unspecified site; R11.2 Nausea with vomiting, unspecified; R51 Headache; R19.7 Diarrhea, unspecified; Z88.1 Allergy status to other antibiotic agents
CPT/HCPCS: 87070; 87635; 87804; 87880; 99211